=== PATIENT | male | born 1985 | race Caucasian/White ===

== ENCOUNTER 2016-11-29 10:29 | Emergency (ER) | payer SELFPAY ==
[~2016-11-29] VITALS: Ht 180.3 cm; Wt 102.6 kg
[2016-11-29 10:43] VITALS: BP 135/72; PULSE 61; RESP 16; TEMP 98.2; O2SAT 97
[2016-11-29 11:06] LABS: BLOOD, URINE NEG (NEG); GLUCOSE,URINE NEG (NEG); KETONE, URINE NEG (NEG); METHOD OF COLLECTION CLEAN CATCH; NITRITE,URINE NEG (NEG); PH, URINE 7.5 (5.0-8.5); URINE COLOR YELLOW (YELLW/STRAW)
[2016-11-29 11:11] LABS: BACTERIA, URINE FEW /hpf; COMMENT (UR) CULTURE INDICATED; CULTURE IF INDICATED CULTURE INDICATED; RBC, URINE 0-3 /hpf (0-3); SQUAMOUS EPITHELIAL CELL URINE 0-5 /hpf (0-5)
--- NOTE | 2016-11-29 11:41 | PD ---
HPI Chief Complaint: bilateral eye redness Time Seen by Provider: 11:07 Travel History International Travel<30 days: No Contact w/Intl Traveler<30days: No Traveled to known affect area: No History of Present Illness HPI 31yo M with no PMH presents to the ED with c/o bilateral eye redness for 3 days. +Watery discharge. +Crusting in the morning. Pt states it is not painful but more irritated. Mild itching. Denies any trauma but he has been rubbing them. Denies any fever, pain with eye movement, visual changes, contact lens or glasses, chest pain, sob, n/v, abdominal pain, testicular pain, penile discharge. Pt states he has been having intermittent painful urination and had some right flank pain earlier in the week that has now resolved. Pt is mainly here for his eyes. PFSH Social History Alcohol Use: Yes Tobacco Use: No Substance Use: No Allergies-Medications (Allergen,Severity, Reaction): Coded Allergies: No Known Allergies (Unverified , 11/29/16) Reported Meds & Prescriptions Reported Meds & Active Scripts Active No Active Prescriptions or Reported Medications Review of Systems Except as stated in HPI: all other systems reviewed are Neg Physical Exam Narrative GENERAL: 31yo M not in distress. SKIN: Focused skin assessment warm/dry. HEAD: Atraumatic. Normocephalic. EYES: Pupils equal and reactive at 3mm bilaterally. Injected conjunctiva bilaterally. Tearing. No purulent discharge. No foreign body. [place] lamp: No fluorescein uptake in bilateral eyes. ENT: No nasal bleeding or discharge. Mucous membranes pink and moist. NECK: Trachea midline. No JVD. CARDIOVASCULAR: Regular rate and rhythm. No murmur appreciated. RESPIRATORY: No accessory muscle use. Clear to auscultation. Breath sounds equal bilaterally. GASTROINTESTINAL: Abdomen soft, non-tender, nondistended. MUSCULOSKELETAL: No obvious deformities. No clubbing. No cyanosis. No edema. NEUROLOGICAL: Awake and alert. No obvious cranial nerve deficits. Motor grossly within normal limits. Normal speech. PSYCHIATRIC: Appropriate mood and affect; insight and judgment normal. Data Data Last Documented VS Vital Signs Date Time Temp Pulse Resp B/P Pulse Ox O2 Delivery O2 Flow Rate FiO2 11/29/16 10:43 98.2 61 16 135/72 97 Orders Urinalysis - C+S If Indicated (11/29/16 10:54) Urine Culture (11/29/16 10:55) Proparacaine 0.5% Opth Soln (Alcaine 0.5 (11/29/16 11:45) Labs Laboratory Tests Test 11/29/16 10:55 Urine Collection Type CLEAN CATCH Urine Color YELLOW Urine Turbidity SLIGHT Urine pH 7.5 Urine Specific [place] 1.017 Urine Protein NEG mg/dL Urine Glucose (UA) NEG mg/dL Urine Ketones NEG mg/dL Urine Occult Blood NEG Urine Nitrite NEG Urine Bilirubin NEG Urine Leukocyte Esterase NEG Urine RBC 0-3 /hpf Urine WBC 9-14 /hpf Urine WBC Clumps FEW Urine Squamous Epithelial 0-5 /hpf Cells Urine Amorphous Sediment MOD Urine Bacteria FEW /hpf Microscopic Urinalysis Comment CULTURE INDICATED Urine Collection Time 1100 MDM Medical Decision Making Medical Screen Exam Complete: Yes Emergency Medical Condition: Yes Interpretation(s) Laboratory Tests Test 11/29/16 10:55 Urine Collection Type CLEAN CATCH Urine Color YELLOW (YELLW/STRAW) Urine Turbidity SLIGHT (CLEAR) Urine pH 7.5 (5.0-8.5) Urine Specific [place] 1.017 (1.002-1.035) Urine Protein NEG mg/dL (NEG-TRACE) Urine Glucose (UA) NEG mg/dL (NEG) Urine Ketones NEG mg/dL (NEG) Urine Occult Blood NEG (NEG) Urine Nitrite NEG (NEG) Urine Bilirubin NEG (NEG) Urine Leukocyte Esterase NEG (NEG) Urine RBC 0-3 /hpf (0-3) Urine WBC 9-14 /hpf (0-5) Urine WBC Clumps FEW (NONE) Urine Squamous Epithelial 0-5 /hpf (0-5) Cells Urine Amorphous Sediment MOD Urine Bacteria FEW /hpf (NONE) Microscopic Urinalysis Comment CULTURE INDICATED Urine Collection Time 1100 Differential Diagnosis Viral conjunctivitis vs. corneal abrasion vs. UTI Narrative Course 31yo M with complaint of bilateral eye redness and irritation for 3 days. Exam consistent with viral conjunctivitis. No flourescein uptake on [place] lamp exam. UA showed positive WBC 9-14. Pt denies any current abdominal pain, back pain, fever or nausea. Will treat since pt had some dysuria. VS stable. Return precautions given. Diagnosis Primary Impression: Viral conjunctivitis Additional Impression: UTI (urinary tract infection) Qualified Code: N39.0 - Urinary tract infection without hematuria, site unspecified Patient Instructions: General Instructions Departure Forms: Tests/Procedures Additional Instructions: Please follow up with [facility] in 1 week. Return to the ED if symptoms worsen. Med/Other Pt SpecificInfo: Prescription(s) given Scripts Propylene Glycol-Glycerin Opth Drops (Artificial Tears Opth Drops)1-0.3% Drops1- 2 Drop EACH EYE BID PRN (DRY EYE) 5 Days Ref 0 Prov:Allyn Haro DO 11/29/16 Sulfamethoxazole-Trimethoprim (Bactrim DS)800-160 Mg Tab1 Tab PO BID #14 TAB Ref 0 Prov:Allyn Haro DO 11/29/16 Allyn Haro DO Nov 29, 2016 11:41
[2016-11-29] MEDS ORDERED: PROPARACAINE HCL 0.5% OPHT SOLN 15 ML BTL EACH EYE ONE (11:45)
[2016-11-29] MEDS ORDERED: BACT800T5 PO (12:24)
[2016-11-29] MEDS ORDERED: ARTIDRO EACH EYE (12:24)
== END 2016-11-29 12:43 | disposition home or self-care (01) ==
LOC: PHED 10:29
DX: B30.9 Viral conjunctivitis, unspecified (principal); N39.0 Urinary tract infection, site not specified
CPT/HCPCS: 81001; 87086; 99283